=== PATIENT | female | born 1960 | race Caucasian/White ===

== ENCOUNTER 2019-05-15 20:57 | Inpatient (IN) | payer MEDICAID, OTHER ==
[~2019-05-15] VITALS: Ht 175.3 cm; Wt 120.0 kg
[2019-05-15 21:48] LABS: Basophils # (auto) 0 uL; Eosinophils # (auto) 0.1 uL; Hematocrit 18.8 % (36.0-46.0); Monocytes # (auto) 1.7 uL; Red Blood Cells 2.56 10^6/uL (4.0-5.20)
[2019-05-15 21:50] LABS: Basophils % (auto) 0.2 % (0.0-2.0); Lymphocytes % (auto) 9.7 % (10.0-50.0); Mean Corpuscular Hgb Conc. 31.3 g/dL (32.0-36.0); Mean Corpuscular Volume 73.4 fL (80.0-100.0); Monocytes % (auto) 15.8 % (0.0-12.0); Neutrophils # (auto) 7.7 uL; Neutrophils % (auto) 73.3 % (37.0-80.0); Platelet Count (auto) 161 10^3/uL (140-450); White Blood Cell 10.5 10^3/uL (4.4-10.8)
[2019-05-15 22:01] LABS: Nucleated Red Blood Cells % 3.3 %; Red Cell Distribution Width 21.6 % (11.8-14.3)
[2019-05-15 22:02] LABS: INR 2.38 (0.9-1.15); Partial Thromboplastin Time 54.7 sec (23.64-32.05)
[2019-05-15 22:03] LABS: Hemoglobin 5.9 g/dL (12.2-16.2)
[2019-05-15 22:06] LABS: Albumin 2.4 g/dL (3.4-5.0); BUN/Creatinine Ratio 22.1; Calcium 7.8 mg/dL (8.5-10.1); Magnesium 2.5 mg/dL (1.6-2.6); Potassium 5.3 mmol/L (3.5-5.1)
[2019-05-15 22:11] LABS: Total Protein 6.1 g/dL (6.4-8.2)
[2019-05-15] MEDS ORDERED: SODIUM CHL 3% 500 ML IV ONE (22:30)
[2019-05-16] VITALS (35 sets, daily range): BP systolic 84–109; BP diastolic 32–77
[2019-05-16 01:59] LABS: Albumin 2.2 g/dL (3.4-5.0); BUN/Creatinine Ratio 23.5; Calcium 7.7 mg/dL (8.5-10.1); Potassium 5.4 mmol/L (3.5-5.1)
[2019-05-16 02:02] LABS: Bilirubin, Total 8.3 mg/dL (0.2-1.0); Total Protein 5.4 g/dL (6.4-8.2)
[2019-05-16] MEDS ORDERED: ACETAMINOPHEN 500 MG TAB PO PRN (03:15)
[2019-05-16] MEDS ORDERED: DOCUSATE SOD 100 MG CAP PO PRN (03:15)
[2019-05-16] MEDS ORDERED: TEMAZEPAM 15 MG CAP PO PRN (03:15)
[2019-05-16] MEDS ORDERED: ALBUMIN 25% 100 ML IV ONE (03:15)
[2019-05-16] MEDS ORDERED: ONDANSETRON HCL 4 MG/2 ML VIAL IV PRN (03:15)
[2019-05-16 03:32] LABS: Urine Amorphous Crystal FEW /hpf (None Seen); Urine Bacteria FEW /hpf (None Seen); Urine Blood Negative /uL (Negative); Urine Specific Gravity 1.013 (1.001-1.035); Urine WBC 2 /hpf (0 - 5)
--- NOTE | 2019-05-16 04:15 | NUR ---
ADMITTED WITH DIZZINESS AND WEAKNESS FOR 2 DAYS. JAUNDICE, ICTERIC. NA 110, K 5.4,HG 5.9, TROPONIN +, BNP 309.81, PTT HIGH. PATIENT IS GROGGY. ZIGGY. HERANNDEZ. FOLLOWS COMMANDS. ALL EXTR WARM. ALL PULSES PALPABLE. OBESE. LUNGS CLEAR. ABDOMEN ROUND AND SOFT. 3+ PITTING EDEMA IN LEGS. RADHA JON HERE. ORDERS RECEIVED FOR LASIX IF THE BLOOD PRESSURE GOES UP, PROTONIX, ALBUMIN, NPO, GIVE ONE MORE UPC IF THE HG IS LESS THAN 7, NA Q [address] OF THE ABDOMEN. EXPLAIN THINGS TO THE PATIENT AND SHE UNDERSTANDS. RADHA JON REVIEWED THE IMAGING STUDIES OF THE CHEST AND HEAD.
[2019-05-16] MEDS ORDERED: FUROSEMIDE 20 MG/2 ML VIAL IV ONE (05:15)
[2019-05-16 07:14] LABS: Basophils # (auto) 0.1 uL; Basophils % (auto) 0.7 % (0.0-2.0)
[2019-05-16 07:18] LABS: Eosinophils # (auto) 0.1 uL; Eosinophils % (auto) 1.5 % (0.0-7.0); Hematocrit 21.2 % (36.0-46.0); Hemoglobin 7.1 g/dL (12.2-16.2); Lymphocytes # (auto) 1.1 uL; Lymphocytes % (auto) 10.7 % (10.0-50.0); Mean Corpuscular Hemoglobin 25.7 pg (28.0-32.0); Mean Corpuscular Hgb Conc. 33.4 g/dL (32.0-36.0); Mean Corpuscular Volume 76.9 fL (80.0-100.0); Monocytes # (auto) 1.7 uL; Monocytes % (auto) 17.7 % (0.0-12.0); Neutrophils # (auto) 6.8 uL; Neutrophils % (auto) 69.4 % (37.0-80.0); Platelet Count (auto) 131 10^3/uL (140-450); Red Blood Cells 2.76 10^6/uL (4.0-5.20); White Blood Cell 9.8 10^3/uL (4.4-10.8)
[2019-05-16 07:31] LABS: Albumin 2.7 g/dL (3.4-5.0); BUN/Creatinine Ratio 22.2; Calcium 7.6 mg/dL (8.5-10.1); Potassium 5.4 mmol/L (3.5-5.1)
[2019-05-16 07:36] LABS: Bilirubin, Total 11.8 mg/dL (0.2-1.0); Total Protein 5.9 g/dL (6.4-8.2)
--- NOTE | 2019-05-16 08:00 | NUR ---
Opening Shift Note Assumed care of patient, awake and alert. Patient A&Ox4. Patient on the monitor, on room air, saturation at 96%. Burgess to gravity. Patient NPO at this time. IV right hand 20G running 3% sodium at 50ml/hr and left hand 20G saline locked. Both IV's patent, clean, dry, and intact. Patient skin and sclarea of eyes jaundice. Skin intact. Bed locked and in the lowest position, side rails up x2, call light with in reach. No S/S of distress/SOB or pain. Instructed on POC and to call for assist PRN. Will continue to monitor.
[2019-05-16] MEDS ORDERED: FUROSEMIDE 20 MG/2 ML VIAL IV SCH (10:00)
[2019-05-16] MEDS ORDERED: PANTOPRAZOLE 40 MG/10 ML VIAL INJ IV SCH ×2 (10:00)
--- NOTE | 2019-05-16 10:00 | NUR ---
Medication dosages, usages, and side effects explained to patient. Patient verbalized understanding. Will continue to monitor.
[2019-05-16 11:11] LABS: Nucleated Red Blood Cells % 6.7 %; Red Cell Distribution Width 22.6 % (11.8-14.3)
[2019-05-16 11:57] LABS: Hematocrit 21.2 % (36.0-46.0)
--- NOTE | 2019-05-16 12:30 | NUR ---
Dr. Arreola at bedside.
[2019-05-16] MEDS ORDERED: IOHEXOL 300 MG/ML 100ML BOTTLE IJ ONE (12:53)
--- NOTE | 2019-05-16 14:30 | NUR ---
Dr. Pabon at bedside.
--- NOTE | 2019-05-16 15:45 | NUR ---
Spoke with Dr. Vogt over the phone. New orders for Stat sodium levels Q4 hours with results called to nephrology. Urine sodium, creatinine, protein, osmolarity, and UA. Start Levophed Quad strength to keep systolic above 90. Give Lasix 80mg IV push after Levo is started.
[2019-05-16 15:46] LABS: Hematocrit 22.6 % (36.0-46.0); Hemoglobin 7.5 g/dL (12.2-16.2)
[2019-05-16 16:00] LABS: BUN/Creatinine Ratio 26.2; Calcium 7.9 mg/dL (8.5-10.1); Potassium 5.4 mmol/L (3.5-5.1)
[2019-05-16] MEDS ORDERED: FUROSEMIDE 100 MG/10ML VIAL IV ONE (16:00)
--- NOTE | 2019-05-16 16:00 | NUR ---
Spoke with Dr. Arreola about new orders from Dr. Vogt. upgrade to ICU.
[2019-05-16 16:01] LABS: % Iron Saturation 67.4 % (15-50)
[2019-05-16 16:07] LABS: Alcohol, Urine < 3.0 mg/dL (0-5); Amphetamine Screen, Urine NEGATIVE (NEGATIVE); Barbiturate Scree,Urine NEGATIVE (NEGATIVE); Benzodiazephine Screen, Urine POSITIVE (NEGATIVE); Cannabinoid Screen, Urine NEGATIVE (NEGATIVE); Cocaine Screen, Urine NEGATIVE (NEGATIVE); Opiate Scree,Urine NEGATIVE (NEGATIVE); Phencyclidine Screen, Urine NEGATIVE (NEGATIVE)
--- NOTE | 2019-05-16 16:20 | NUR ---
Dr. Vogt at bedside.
[2019-05-16 16:40] LABS: Urine Bacteria NONE SEEN /hpf (None Seen); Urine Blood 3+ /uL (Negative); Urine Specific Gravity 1.031 (1.001-1.035); Urine WBC 83 /hpf (0 - 5)
[2019-05-16 16:49] LABS: Protein, Urine 68.5 mg/dL (0.0-11.9)
--- NOTE | 2019-05-16 17:10 | NUR ---
Patient resting at this time. Blood pressure 96/50. Levo held until systolic blood pressure drops below 90. See vital sign intervention. Will continue to monitor.
[2019-05-16] MEDS: ALBUMIN 25% 100 ML IV SCH (18:25)
--- NOTE | 2019-05-16 18:30 | NUR ---
End of shift note: Patient resting at this time. Patient A&Ox4. Patient on the monitor, on room air, saturation at 99%. Burgess to gravity. Patient on CLD, waiting for diet tray. Patient on 1L fluid restrictions. IV right hand 20G saline locked and left hand 20G running albumin 25% at 100ml/hr. Both IV's patent, clean, dry, and intact. Patient skin and sclarea of eyes jaundice. Skin intact. Bed locked and in the lowest position, side rails up x2, call light with in reach. No S/S of distress/SOB or pain. Will continue to monitor. Report to be given to retail shift leader RN.
[2019-05-16] MEDS: BUMETANIDE 1mg/4ml VIAL (0.25mg/ml) IV SCH (19:01)
--- NOTE | 2019-05-16 20:00 | NUR ---
Opening Shift Note Assumed care of patient, awake and alert and oriented x3, patient's responds to questions very delayed. Noted to be edematous and jaundiced throughout with coarse/diminished lung sounds throughout. Patient follows commands, turned to side with moderate assistance to assess for skin integrity and for relief of pressure points with pillows. IV to right and left hand flushing and patent. BP in 90's systolic, temperature rechecked at this time : 97.3f orally.No S/S of distress/SOB or pain, on RA. Instructed on POC and to call for assist PRN, continue to monitor closely.
[2019-05-16] MEDS ORDERED: PANTOPRAZOLE 40 MG TAB PO SCH (22:00)
[2019-05-16] MEDS: OCTREOTIDE ACETATE 100 MCG/ML VL SUBCUT SCH (22:06)
--- NOTE | 2019-05-16 23:57 | NUR ---
LEFT MESSAGE WITH 'S EXCHANGE AND SODIUM LEVEL FOR THIS EVENING
[2019-05-17] VITALS (113 sets, daily range): BP systolic 80–118; BP diastolic 25–67
[2019-05-17] MEDS: NOREPINEPHRINE BITARTRATE 32 MG in D5W 5% 218 ML IV SCH ×2 (00:13→15:51)
--- NOTE | 2019-05-17 00:43 | NUR ---
REPORT GIVEN TO HELEN PARKS IN ICU
--- NOTE | 2019-05-17 01:15 | NUR ---
ANGELA pt transferred to ICU DEVONTE THOMAS transferred to ICU via rniwot on engine monitor by insulation cupola charger and CCT. All patient medications and personal belongings transferred with patient to receiving floor. Patient care transferred to Alix PARKS.No s/s of distress or SOB upon departure. Last BP 93/55.
--- NOTE | 2019-05-17 01:25 | NUR ---
BROUGHT TO ROOM 111 ICU AT 0125. NSR WITHOUT ECTOPY. SBP 101-105. LEVOPHED DRIP. 2 PERIPHERAL IVS, ONE 20 IN THE LEFT HAND AND ONE 20 IN THE RIGHT HAND. LEVOPHED GOING THROUGH THE LEFT HAND. MUCH MORE SOMNULENT THAN WHEN SHE WAS ORIGINALLY ADMITTED. KNEW NAME. THEN IMMEDIATELY FELL ASLEEP. SNORING. LUNGS CLEAR. PUPILS 4 AND BRISK. ALL PULSES PALPABLE. NO EDEMA IN ARMS. 3+ PITTING EDEMA IN LEGS. 0200 NA LEVEL AND AMMONIA LEVEL DUE TO BE DRAWN. NOTED DRIED ABRASIONS ON BOTH ELBOWS. OTHERWISE SMALL NICKS SCATTERED OVER BODY. MANCINI IN PLACE, ROXANNE FLUID IN BAG.
--- NOTE | 2019-05-17 01:53 | NUR ---
CALLED LAB TO REORIENT THEM TO HER LOCATION. ACCUCHRUPERTO 115.
--- NOTE | 2019-05-17 02:00 | NUR ---
AM LABS BEING DRAWN
[2019-05-17 02:25] LABS: Basophils # (auto) 0 uL; Eosinophils # (auto) 0.3 uL; Monocytes # (auto) 1.7 uL
[2019-05-17 02:27] LABS: Basophils % (auto) 0.4 % (0.0-2.0); Lymphocytes # (auto) 1.1 uL; Lymphocytes % (auto) 8.4 % (10.0-50.0); Mean Corpuscular Hemoglobin 25.2 pg (28.0-32.0); Mean Corpuscular Hgb Conc. 32.5 g/dL (32.0-36.0); Mean Corpuscular Volume 77.4 fL (80.0-100.0); Monocytes % (auto) 13.2 % (0.0-12.0); Platelet Count (auto) 137 10^3/uL (140-450); Red Blood Cells 2.71 10^6/uL (4.0-5.20); White Blood Cell 13.2 10^3/uL (4.4-10.8)
[2019-05-17 02:29] LABS: Nucleated Red Blood Cells % 3.9 %; Red Cell Distribution Width 22.1 % (11.8-14.3)
[2019-05-17 02:33] LABS: Hemoglobin 6.8 g/dL (12.2-16.2)
--- NOTE | 2019-05-17 02:52 | NUR ---
ONE UNIT OF PACKED CELLS ORDERED PER RADHA JON
[2019-05-17 02:55] LABS: Albumin 2.8 g/dL (3.4-5.0); Potassium 5.1 mmol/L (3.5-5.1)
[2019-05-17 02:58] LABS: Bilirubin, Total 12.5 mg/dL (0.2-1.0); Phosphorus 4.1 mg/dL (2.5-4.90); Total Protein 5.7 g/dL (6.4-8.2)
--- NOTE | 2019-05-17 03:19 | NUR ---
NA AND AMMONIA LEVEL CALLED TO DR HEART'S EXCHANGE.
[2019-05-17 03:31] LABS: BUN/Creatinine Ratio 25.3
--- NOTE | 2019-05-17 04:02 | NUR ---
UPC STARTED. STILL VERY GROGGY. WAKES UP TO NAME. SLEEPS CONTINUOUSLY. ZIGGY. PRINT PRODUCTION MANAGER TO COMMAND, WEAKLY. LUNGS CLEAR. ROOM AIR. BICARB LOW ON ABG. ABDOMEN IS VERY ROUND AND SOFT. PITTING EDEMA IN BOTH LEGS PERSISTS. ALL PULSES PALPABLE. HAS 2 BLANKETS ON. TEMP IS LOWER.
--- NOTE | 2019-05-17 05:30 | NUR ---
DR DELCID CALLED AND IS HAPPY WITH WHERE HER SODIUM IS FOR NOW. NO NEW ORDERS RECEIVED.
[2019-05-17] MEDS: OCTREOTIDE ACETATE 100 MCG/ML VL SUBCUT SCH ×3 (05:38→21:23)
[2019-05-17] MEDS: BUMETANIDE 1mg/4ml VIAL (0.25mg/ml) IV SCH ×2 (05:38→21:22)
[2019-05-17] MEDS: ALBUMIN 25% 100 ML IV SCH ×2 (05:44→18:23)
--- NOTE | 2019-05-17 06:36 | NUR ---
UPC FINISHED AT 0625. ALBUMIN DONE.
--- NOTE | 2019-05-17 07:45 | NUR ---
Neuro status Patient alert and oriented x1, verbalizes name only with garbled speech. Able to follow simple command but is delayed. Will continue to monitor closely. See interventions/ notes. Call light at reach, bed in lowest position. Aspiration precautions in place.
--- NOTE | 2019-05-17 08:00 | NUR ---
Warming Measures applied. Patient currently has temp of 97.4 , warming measures in place.
--- NOTE | 2019-05-17 08:30 | NUR ---
NPO Patient to remain npo as she is too lethargic and is at high risk for aspiration. Po meds to be changed to alternative route. Awaiting md.
[2019-05-17 09:08] LABS: Hepatitis B Surface Antibody Negative
[2019-05-17 09:45] LABS: Hepatitis A Total Antibody Negative
--- NOTE | 2019-05-17 09:46 | NUR ---
DR. EDWARDS AT BEDSIDE MD UPDATED ON PATIENTS STATUS. MD IS AWARE PATIENT IS LETHARGIC AND UNABLE TO SWALLOW MEDICATIONS AT THIS TIME. NEW ORDER FOR NG TO BE PLACE. SEE MD ORDERS. MEDICATION RECORDS REQUESTED SHOWN TO MD. REQUEST FROM DR. ROD'S OFFICE PENDING. Addendum: 05/17/19 at 1334 by Delmis Doss RN Md aware of scant/small bright red blood noted from rectum during nell care this a.m.
--- NOTE | 2019-05-17 09:57 | NUR ---
Nasogastric tube insertion Patient educated on need for NG tube. All questions addressed. NGT inserted per MD order. Placement verified by aspiration of stomach contents, auscultation and chest xray ordered.
[2019-05-17] MEDS ORDERED: LACTULOSE 20Gm/30ML SOLN NG SCH (10:00)
--- NOTE | 2019-05-17 10:00 | NUR ---
Family updated on pt status Family of MINOR DEVONTE GOMEZ updated on patient's status and condition. All questions and concerns addressed. Pillo verbalized understanding.
[2019-05-17 10:15] LABS: Hepatitis C Antibody Negative (Negative)
[2019-05-17 10:16] LABS: Hepatitis B Core Total AB Negative; Hepatitis B Surface Antigen Negative (Negative)
[2019-05-17 10:24] LABS: INR 2.48 (0.9-1.15)
--- NOTE | 2019-05-17 10:33 | NUR ---
at bedside Dr. Rodrigues updated on patients status. See new orders.
--- NOTE | 2019-05-17 11:09 | NUR ---
Toxicologist paged re: sodium level per communication order. Awaiting callback.
[2019-05-17] MEDS ORDERED: PHYTONADIONE (VIT K)10 MG/ML 1ML VIAL SUBCUT ONE ×2 (11:15→20:15)
[2019-05-17] MEDS: OMEPRAZOLE 20MG/10ML ORAL SUSP NG SCH ×2 (11:50→21:22)
--- NOTE | 2019-05-17 12:26 | NUR ---
Nutrition Consult/Assessment Notes please see attached link for complete assessment Est. Needs ABW [id number] kcal (20-23kcal/kgBW), 51-68 gms pro (0.6-0.8 gms/kgBW r/t elev ammonia cirrhosis). Will continue to monitor pertinent labs and reassess nutrient need prn. Addendum: 05/17/19 at [address] Amended: Links added.
--- NOTE | 2019-05-17 13:22 | NUR ---
RESP. STATUS DR. SINA COMBS TO NOTIFY PATIENT IS CURRENTLY AROUSUABLE ONLY TO PAINFUL STIMULI VIA STERNAL CHEST RUB. RESP. STATUS AT THIS TIME IS PATENT, REMAINS ON ROOM AIR 95% RR 2-27. NEW ORDER IN PLACE. AIRWAY TO BE MONITORED CLOSELY.
[2019-05-17] MEDS ORDERED: LACTULOSE 20Gm/30ML SOLN PO PRN ×2 (14:00)
[2019-05-17] MEDS ORDERED: ETOMIDATE (2MG/ML) 20ML VIAL IV ONE ×2 (14:46→16:00)
[2019-05-17] MEDS ORDERED: SUCCINYLCHOLINE CHLORIDE 20 MG/ML 10ML VIAL IV ONE ×2 (14:47→16:00)
--- NOTE | 2019-05-17 15:12 | NUR ---
PICC line placement Patient/Patient significant other educated on need for PICC line placement. All risks and benefits explained and all questions and concerns addressed prior to procedure. Noted past medical history and allergies with no contraindications. INR and Plt counts within acceptable range. 5 fr PICC line inserted via right basilic vein using [employer] US and Tip Location System. Sterile technique with maximum barrier precautions utilized. Blood return obtained from each of 3 lumens and each flushed easily with NS using proper technique. PICC secured with Stat-lock; biodisc and occlusive dressing applied. Stat portable chest x-ray obtained for PICC tip placement. *Baseline Arm Circumference 32cm. Internal length 40cm. External length 0cm. PICC lot # [id number]. Note: Placed easily x1 attempt. No bleeding post PICC line insertion (INR 2.48)
[2019-05-17] MEDS ORDERED: LIDOCAINE 1% (LOCAL ANESTH.) PF 5ml SDV ID ONE (15:15)
--- NOTE | 2019-05-17 15:29 | NUR ---
MD UPDATED PATIENT IS MORE LETHARGIC, NOT RESPONSIVE TO PAINFUL STIMULI COMPARED TO EARLIER. DR. SINA GARCIA MD SPOKE TO AND AGREES TO ALL TREATMENT INCLUDING INTUBATION. DR. SALGADO AWARE OF NEED FOR INTUBATION FOR AIRWAY PROTECTION AT THIS TIME. Mack GARCIA.
[2019-05-17 16:03] LABS: Hematocrit 20.8 % (36.0-46.0); Mean Corpuscular Hemoglobin 25.9 pg (28.0-32.0); Mean Corpuscular Hgb Conc. 32.7 g/dL (32.0-36.0); Mean Corpuscular Volume 79.2 fL (80.0-100.0); Red Blood Cells 2.62 10^6/uL (4.0-5.20); White Blood Cell 14.7 10^3/uL (4.4-10.8)
[2019-05-17] MEDS ORDERED: PROPOFOL 100 ML IV ONE (16:11)
--- NOTE | 2019-05-17 16:16 | NUR ---
ICU pt. intubated Dr. Gallo at bedside to intubate patient for airway protection. Respiratory Therapist notified and at bedside. via phone instructed on need for intubation and possible sedation while on ventilator. Patient intubated by Dr. Gallo with 7.0 ETT, 23 at the lip after ett adjustment via CXR., Medications given, see emar.
[2019-05-17 16:20] LABS: Red Cell Distribution Width 22.1 % (11.8-14.3)
[2019-05-17 16:23] LABS: Hemoglobin 6.8 g/dL (12.2-16.2); Platelet Count (auto) 20 10^3/uL (140-450)
[2019-05-17 16:24] LABS: Band Neutrophils % (manual) 0; Basophils % (manual) 0 (0.0-2.0); Blast Cells 0; Myelocytes % 0; Promyelocytes % 0; Reactive Lymphocytes 0
[2019-05-17] MEDS: PROPOFOL 100 ML IV SCH (16:25)
--- NOTE | 2019-05-17 17:10 | NUR ---
OK to use PICC line Xray completed. OK to use PICC line.
--- NOTE | 2019-05-17 17:27 | NUR ---
DR. ANDINO CALLED BACK NOTIFIED OF CURRENT CRITICAL LAB VALUES ALONG WITH ABG RESULTS. SEDATION TO BE INCREASED AND BLOOD GAS TO BE REASSESSED WITHIN 2 HRS. NOTIFIED OF BLEEDING NOTED FROM NG. SEE NEW ORDERS.
--- NOTE | 2019-05-17 17:30 | NUR ---
DR. EDWARDS PAGED TO NOTIFY OF CURRENT PLT COUNT AND NG OUTPUT. AWAITING CALLBACK.
[2019-05-17 18:07] LABS: Eosinophils % (manual) 1 (0-7); Lymphocytes % (manual) 10 (10.0-50.0); Metamyelocytes % 1; Monocytes % (manual) 2 (0-12)
[2019-05-17] MEDS: PIPERACILLIN-TAZOB 3.375GM 100 ML IV SCH ×2 (18:23→23:20)
--- NOTE | 2019-05-17 19:00 | NUR ---
MD PAGED PER MD COMMUNICATION ORDERS MD CALLED TO NOTIFY OF NA LEVEL. AWAITING CALLBACK.
--- NOTE | 2019-05-17 19:09 | NUR ---
DR. DELCID CALLED BACK. NOTIFIED OF CURRENT NA LEVEL. VERBALIZED UNDERSTANDING. NO NEW ORDERS.
[2019-05-17 19:24] LABS: INR > 8.0 (0.9-1.15)
--- NOTE | 2019-05-17 19:26 | NUR ---
Critical lab value Hospitalist paged. See new orders. Noc shift aware.
[2019-05-17] MEDS ORDERED: phytonadione 10 MG in SODIUM CHL 0.9% 50 ML IV ONE (19:30)
--- NOTE | 2019-05-17 19:30 | NUR ---
Opening notes Assumed care, on AC mode vent with PICC line to the right upper arm infusing propofol and levophed, see spreadsheet for titration. PIV's patent and intact, clear lung sounds noted, NGT intact with minimal amount of bloody output, adam catheter draining to a light edgardo urine with sediments, generalized edema still noted, with SCD's to bilateral legs, still with jaundice. Bed in lowest position with side rails up, bed alarm on. Will continue care.
--- NOTE | 2019-05-17 19:51 | NUR ---
BLOOD TRANSFUSION 1 UNIT OF PRBC 300ML STARTED AFTER PROPER CROSS MATCHING AND TYPING, UNIT VERIFIED WITH JOSE PARKS. VS MONITORED PER PROTOCOL. WILL MONITOR FOR TRANSFUSION REACTION.
[2019-05-17] MEDS: SODIUM CHLOR 0.9% PF (SALINE LOCK) 10ML VIAL/SYR IV SCH (21:22)
--- NOTE | 2019-05-17 22:34 | NUR ---
PAGED DR. HEART AND SPOKE WITH ESTUARDO, ANSWERING PROTECTIVE SERVICES OFFICER TO RELAY CRITICAL SODIUM LEVEL, 118. AWAITING CALL BACK.
--- NOTE | 2019-05-17 22:35 | NUR ---
BLOOD TRANSFUSION DONE, VS TAKEN AND RECORDED. NO TRANSFUSION REACTION NOTED.
--- NOTE | 2019-05-17 22:40 | NUR ---
returned call Dr. Ocasio returned call, updated on patient status and reason for call regarding Na level 118, no new orders received. Continue care.
--- NOTE | 2019-05-17 22:55 | NUR ---
1st unit of FFP started, unit verified with Sapna PARKS. VS taken per protocol
[2019-05-18] VITALS (109 sets, daily range): BP systolic 69–209; BP diastolic 26–119
--- NOTE | 2019-05-18 00:10 | NUR ---
Wound care Serosanguineous drainage noted in the right elbow, cleansed wound with NS and covered with optifoam, wound photo taken for reference and placed a wound consult.
--- NOTE | 2019-05-18 01:37 | NUR ---
1st unit of FFP consumed and terminated, VS taken and recorded. No transfusion reaction noted. Will continue to monitor
--- NOTE | 2019-05-18 01:37 | NUR ---
OFE IRRIGATOR HEAD CALLED BACK, UPDATED ON PT'S STATUS RE: LABS, BLOOD TRANSFUSIONS GIVEN, BP NOT DETECTED, HR 92, RR 33. RT AT BEDSIDE, PROPOFOL OFF. NEW ORDERS GIVEN TO GIVE ALBUMIN 250ML, 5%, STAT H&H AND COAG. WILL CARRY OUT ORDERS
--- NOTE | 2019-05-18 01:45 | NUR ---
Ramin Delvalle, LORRAINE for more sedation order, tachypnea and decreased BP still noted, pt is now on propofol and levophed.
--- NOTE | 2019-05-18 01:46 | NUR ---
BP 69/26, HR 85, RR 34, SPO2 100%, PT BITING ET TUBE AND DECORTICATION OF UPPER EXTREMITIES NOTED, RT AND SARIKA RN AT BEDSIDE TRYING TO PUT A BITE BLOCK BUT UNSUCCESSFUL. LEVOPHED INCREASED TO 30 MCG/MIN, DIPRIVAN ! 20 MCG/KG/MIN. AWAITING FOR THE HOSPITALIST TO CALL BACK.
--- NOTE | 2019-05-18 02:18 | NUR ---
REASSESSMENT BP 110/48, HR 85, R 35, SPO2 100%.
[2019-05-18] MEDS ORDERED: ALBUMIN 5% 250 ML IV ONE ×2 (02:36→02:45)
[2019-05-18] MEDS ORDERED: fentaNYL Drip 2500mCg/250mlNS 250 ML IV ONE (02:59)
--- NOTE | 2019-05-18 03:05 | NUR ---
REASSESSMENT AFTER GIVING ALBUMIN ORDERED, BP 123/77, HR 96, SPO2 99%. FENTANYL STARTED @ 50 MCG/HR
[2019-05-18 03:07] LABS: Hematocrit 23.2 % (36.0-46.0); Hemoglobin 7.8 g/dL (12.2-16.2); Mean Corpuscular Hemoglobin 27.6 pg (28.0-32.0); Mean Corpuscular Hgb Conc. 33.7 g/dL (32.0-36.0); Mean Corpuscular Volume 81.9 fL (80.0-100.0); Platelet Count (auto) 115 10^3/uL (140-450); Red Blood Cells 2.83 10^6/uL (4.0-5.20)
[2019-05-18 03:09] LABS: Red Cell Distribution Width 21.5 % (11.8-14.3)
[2019-05-18 03:12] LABS: Basophils % (manual) 0 (0.0-2.0); Blast Cells 0; Myelocytes % 0; Promyelocytes % 0; Reactive Lymphocytes 0
[2019-05-18] MEDS: fentaNYL Drip 2500mCg/250mlNS 250 ML IV SCH (03:18)
[2019-05-18 03:23] LABS: INR 2.38 (0.9-1.15); Partial Thromboplastin Time 56.7 sec (23.64-32.05)
[2019-05-18 03:27] LABS: Albumin 3.4 g/dL (3.4-5.0); BUN/Creatinine Ratio 21.9; Magnesium 2.3 mg/dL (1.6-2.6); Potassium 4.9 mmol/L (3.5-5.1)
[2019-05-18 03:30] LABS: Bilirubin, Total 12.3 mg/dL (0.2-1.0); Total Protein 5.8 g/dL (6.4-8.2)
--- NOTE | 2019-05-18 03:45 | NUR ---
Elimination Had large amount of liquid, blackish stools, external hemorrhoids also noted. Cleaned pt and complete linens and gown changed. Unable to reposition due to very unstable VS.
[2019-05-18] MEDS: PROPOFOL 100 ML IV SCH (03:53)
[2019-05-18] MEDS ORDERED: VASOPRESSIN 50 UNITS in D5W 5% 247.5 ML IV SCH (05:45)
[2019-05-18] MEDS ORDERED: VASOPRESSIN 20 UNIT/ML ONE (05:51)
[2019-05-18] MEDS: ALBUMIN 25% 100 ML IV SCH (05:52)
[2019-05-18] MEDS: PIPERACILLIN-TAZOB 3.375GM 100 ML IV SCH ×3 (05:53→18:09)
[2019-05-18] MEDS: OCTREOTIDE ACETATE 100 MCG/ML VL SUBCUT SCH ×3 (05:53→22:01)
[2019-05-18] MEDS: BUMETANIDE 1mg/4ml VIAL (0.25mg/ml) IV SCH (05:53)
--- NOTE | 2019-05-18 06:54 | NUR ---
Pagedonavon Delvalle for orders, maxed out on levophed and vasopressin, BP 78/40, HR 76. Awaiting call back.
--- NOTE | 2019-05-18 06:56 | NUR ---
Mook PETERS called back, updated on pt's status and gave order to start neosynephrine. Will carry out order.
[2019-05-18] MEDS ORDERED: PHENYLEPHRINE INJ 20 MG in SODIUM CHL 0.9% 250 ML IV SCH (06:57)
[2019-05-18] MEDS ORDERED: PHENYLEPHRINE IV 250 ML IV ONE ×2 (06:57→11:25)
--- NOTE | 2019-05-18 07:00 | NUR ---
Phenylephrine started @ 40 mcg/min, BP 78/40, HR 77.
--- NOTE | 2019-05-18 07:21 | NUR ---
Closing notes Resting on bed, still on vent and sedation with fentanyl, off propofol. ON levophed, vasopressin and neosynephrine drips, see spreadsheet for titration. BP 94/51, HR 79, SPO2 100, RR 25. Will give the report to day shift RN,
--- NOTE | 2019-05-18 07:30 | NUR ---
REPORT REPORT RECEIVED FROM NIGHT RNSAVAGE. PT RESTING IN BED WITH EYES CLOSED, OON THE VENTILATOR , SEDATED ON LOW DOSE FENTANYL AND ON 3 PRESSORS. CONTINUE TO MONITOR.
--- NOTE | 2019-05-18 07:55 | NUR ---
PT TEACHING PT UNABLE TO BENEFIT FROM PT TEACHING AT THIS TIME DUE TO PT CONDITION. Addendum: 05/18/19 at 1300 by Xiomy Berg RN Amended: Links added.
[2019-05-18 08:19] LABS: Hematocrit 22.8 % (36.0-46.0); Hemoglobin 7.4 g/dL (12.2-16.2)
[2019-05-18 08:26] LABS: Band Neutrophils % (manual) 6; Eosinophils % (manual) 8 (0-7); Lymphocytes % (manual) 8 (10.0-50.0); Metamyelocytes % 1; Monocytes % (manual) 5 (0-12)
[2019-05-18 08:37] LABS: White Blood Cell 2.6 10^3/uL (4.4-10.8)
[2019-05-18] MEDS: SODIUM CHLOR 0.9% PF (SALINE LOCK) 10ML VIAL/SYR IV SCH ×2 (10:00→22:00)
[2019-05-18] MEDS: OMEPRAZOLE 20MG/10ML ORAL SUSP NG SCH ×2 (10:26→22:00)
[2019-05-18] MEDS ORDERED: SODIUM BICARBONATE 50ML VIAL 150 ML in SODIUM CHLORIDE 0.9% 1,000 ML IV SCH (11:00)
[2019-05-18] MEDS: PHENYLEPHRINE INJ 80 MG in SODIUM CHL 0.9% 250 ML IV SCH (11:06)
[2019-05-18] MEDS ORDERED: PHENYLEPHRINE HCL 10 MG/ML VL ONE (11:25)
--- NOTE | 2019-05-18 12:10 | NUR ---
MD/ABNORMAL LABS PAGED AND SPOKE WITH DR MCBRIDE TO NOTIFY OF H/H 6.3/19.8 . SHE WANTS ME TO NOTIFY DR EDWARDS OF THESE RESULTS. PAGING DR EDWARDS.
--- NOTE | 2019-05-18 12:17 | NUR ---
NOTIFIED DR EDWARDS OF LOW H/H 6.3/19.8. HE STATED THAT THE ABNORMAL PT/PTT/INR NEED TO BE CORRECTED FIRST. WILL NOTIFY DR MCBRIDE.
--- NOTE | 2019-05-18 12:19 | NUR ---
CONTACTED BY LAB THAT UNABLE TO OBTAIN PTPTT RESULT AND SO WILL SEND NEPHROLOGIST TO DO A PERIPHERAL STICK AND RERUN CBC AND PTPTT.
--- NOTE | 2019-05-18 12:41 | NUR ---
CALLED AND SPOKE WITH PHARMACIST, STILL WAITING FOR SODIUM BICARB DRIP.
[2019-05-18] MEDS: LACTULOSE 20Gm/30ML SOLN PO SCH ×3 (13:14→22:02)
[2019-05-18 13:25] LABS: Hemoglobin 7.4 g/dL (12.2-16.2); Platelet Count (auto) 80 10^3/uL (140-450)
[2019-05-18 13:27] LABS: Hematocrit 22.5 % (36.0-46.0); Mean Corpuscular Hemoglobin 27.2 pg (28.0-32.0); Mean Corpuscular Hgb Conc. 32.9 g/dL (32.0-36.0); Mean Corpuscular Volume 82.6 fL (80.0-100.0); Red Blood Cells 2.73 10^6/uL (4.0-5.20)
[2019-05-18 13:28] LABS: INR 2.79 (0.9-1.15); Partial Thromboplastin Time 65.5 sec (23.64-32.05)
[2019-05-18 13:30] LABS: Red Cell Distribution Width 21.8 % (11.8-14.3)
[2019-05-18 13:31] LABS: Basophils % (manual) 0 (0.0-2.0); Blast Cells 0; Promyelocytes % 0; Reactive Lymphocytes 0
--- NOTE | 2019-05-18 13:40 | NUR ---
PAGED AND SPOKE WITH DR MCBRIDE REGARDING LAB RESULTS FROM PERIPHERAL DRAW H/H 7.4/22.5 PTT/PT/INR 65.5/28.2/[address] MCBRIDE, ORDERS FOR DAILY VITAMIN K AND GIVE ONE UNIT OF FFP CALLED BLOOD BANK AND ONE UNIT OF FFP IS AVAILABLE.
[2019-05-18] MEDS ORDERED: PHYTONADIONE (VIT K)10 MG/ML 1ML VIAL SUBCUT ONE (13:45)
--- NOTE | 2019-05-18 14:20 | NUR ---
Pt turned and repositioned for comfort to her left side and complete linen change done. BP of 124/46 and turned neosynephrine from 120 to 110 mcg/min. Continue to monitor.
[2019-05-18] MEDS: NOREPINEPHRINE BITARTRATE 32 MG in D5W 5% 218 ML IV SCH (15:51)
--- NOTE | 2019-05-18 16:30 | NUR ---
STARTED ON ORDERED ONE UNIT OF FFP. UNIT# [id number]. CONTINUE TO MONITOR FOR POSSIBLE REACTIONS.
[2019-05-18 17:09] LABS: Hematocrit 22.9 % (36.0-46.0); Hemoglobin 7.3 g/dL (12.2-16.2); Mean Corpuscular Hemoglobin 26.9 pg (28.0-32.0); Mean Corpuscular Hgb Conc. 31.8 g/dL (32.0-36.0); Mean Corpuscular Volume 84.4 fL (80.0-100.0); Platelet Count (auto) 73 10^3/uL (140-450); Red Blood Cells 2.71 10^6/uL (4.0-5.20); White Blood Cell 13.8 10^3/uL (4.4-10.8)
[2019-05-18 17:23] LABS: INR 2.81 (0.9-1.15)
[2019-05-18 17:27] LABS: BUN/Creatinine Ratio 17.9; Calcium 7.9 mg/dL (8.5-10.1); Potassium 4.3 mmol/L (3.5-5.1)
--- NOTE | 2019-05-18 17:30 | NUR ---
WOUND CARE NOTE: IN TO SEE PATIENT PER WOUND CONSULT REQUEST. PATIENT WAS ADMITTED TO [facility] WITH DIAGNOSIS OF HYPONATREMIA. CURRENT CARLEE SCORE IS 12. SHE IS INTUBATED, SEDATED. PATIENT WAS NOTED UPON ADMIT TO HAVE WOUNDS UPON ADMIT, WOUND PHOTOS TAKEN AT THAT TIME BY BEDSIDE NURSE FOR REFERENCE. PATIENT IS NOTED TO HAVE ABRASIONS TO BOTH RIGHT AND LEFT ELBOWS. LEFT ELBOW IS INTACT, RIGHT ELBOW IS OPEN, LEFT OPEN TO AIR, MEASURING 6 X 5 CM. APPLIED THERAHONEY, OPTIFOAM GENTLE DRESSING. NEW WOUND PHOTOS TAKEN AT THIS TIME FOR REFERENCE. PATIENT HAS BEEN HAVING MULTIPLE EPISODES WITH INCONTINENT LIQUID STOOL. PATIENT WOULD BENEFIT FROM BID/PRN APPLICATIONS WITH CAVILON BARRIER FILM. RECOMMEND: FREQUENT TURN SCHEDULE Q 2 HOURS, PRN CONDITION PERMITS, WITH PRESSURE REDISTRIBUTION USING PILLOWS/WEDGES, BID/PRN APPLICATION WITH CAVILON TO PERINEUM, PERIANAL SKIN, COVERING UPPER MEDIAL SACRUM WITH OPTIFOAM GENTLE SACRAL DRESSING, Q 3 DAY/PRN DRESSING CHANGE TO RIGHT ELBOW WOUND, DIETARY CONSULT FOR LOW CARLEE, SKIN/WOUND CARE PLAN, CONTINUED MONITORING BY WOUND CARE TEAM. Addendum: 05/18/19 at 1846 by Miguelina Funk RN Amended: Links added.
--- NOTE | 2019-05-18 17:35 | NUR ---
LAB NOTIFIED BY DAVID IN LAB , THAT PT'S NA IS 119. THAT IS UP FROM 115 . CONTINUE TO MONITOR,.
--- NOTE | 2019-05-18 18:30 | NUR ---
NOTIFIED DR HEART OF NA 119 AND UOP OF 180 ML FOR THIS 12 HR SHIFT. HE WANTS BICARB DRIP DC'D, ALL IVF TO TOTAL LESS THAN 1 LITER FOR 24 HRS, AND HE WANTS NEPHROLOGY TO BE NOTIFIED BEFORE ANY CHANGES ARE MADE IN THE IVF ORDERS UNLESS PT IS IN A CODE SITUATION, ALSO ALL MEDS TO BE MIXED IN NS DUE TO LOW NA LEVEL, UNLESS CONTRAINDICATED.. CALLED AND SPOKE WITH MAYITO, PHARMACIST, AND MADE HIM AWARE OF DR HEART'S ORDERS.
[2019-05-18] MEDS ORDERED: BUMETANIDE INJECTION 25 MG in GIVE UN-DILUTED 0 ML IV SCH (18:45)
--- NOTE | 2019-05-18 19:30 | NUR ---
REPRT REPORT GIVEN TO VANESSA RNTEODORO. BEDSIDE CHECK DONE. FFP TRANSFUSION COMPLETED WITH NO ADVERSE EFFECTS NOTED.
[2019-05-18 19:57] LABS: Band Neutrophils % (manual) 14; Eosinophils % (manual) 5 (0-7); Lymphocytes % (manual) 4 (10.0-50.0); Metamyelocytes % 18; Monocytes % (manual) 3 (0-12); Myelocytes % 2
[2019-05-18 19:59] LABS: Red Cell Distribution Width 21.4 % (11.8-14.3)
[2019-05-18 20:00] LABS: Basophils % (manual) 0 (0.0-2.0); Blast Cells 0; Promyelocytes % 0; Reactive Lymphocytes 0
[2019-05-18 20:00] LABS: White Blood Cell 11.4 10^3/uL (4.4-10.8)
--- NOTE | 2019-05-18 20:00 | NUR ---
OPEN ASSUMED CARE OF FEMALE PT ORALLY INTUBATED. PT SEDATED ON FENTANYL GTT 25 MCG/HR. PT OPENS EYES DURING ORAL CARE AND TURNING. UNABLE TO FOLLOW COMMANDS. JAUNDICE APPEARING SKIN AND SCLERA OBSERVED. PT SR ON PROTECTIVE SERVICE SPECIALIST. PT RECEIVING PHENYLEPHRINE GTT QUAD CONCENTRATE, LEVOPHED GTT QUAD CONCENTRATE, AND VASOPRESSIN GTT (SEE IV SPREADSHEET FOR DOSAGES AND TITRATIONS). GTT'S INFUSING INTO R UPPER ARM PICC LINE WITH INTACT DRESSING. 20 G IV TO L. HAND S/L, AND 20 G IV TO R. HAND WITH NS AT 10 ML/HR TKO. NGT IN PLACE TO L. NARE DRAINING DARK BLACKISH GREEN BILE. PLACEMENT VERIFIED. PT WITH ANASARCA THROUGHOUT BODY. ABDOMEN FIRM DISTENDED. 4+ PITTING EDEMA TO [place] FEET AND ANKLES. SKIN TEAR/ABRASION TO R. ELBOW WITH CDI DRESSING. ABRASION TO L. POST FOREARM OPEN TO AIR NON DRAINING. MANCINI TO GRAVITY DRAINING SCANT DARK ROXANNE URINE. NO SKIN BREAKDOWN OBSERVED. NO INDICATION OF PAIN OBSERVED. BED IN LOWEST LOCKED POSITION. SIDE RAILS UP X 2. PT IN FULL VIEW OF RN STATION. WILL CONTINUE TO MONITOR.
--- NOTE | 2019-05-18 21:00 | NUR ---
GI/FLEXISEAL PT HAD LARGE DARK MAROON LIQUID STOOL. PT CLEANSED. FLEXISEAL INSERTED PLACED TO GRAVITY TO PROTECT SKIN. NO TRAUMA DURING INSERTION.
[2019-05-18 21:52] LABS: Band Neutrophils % (manual) 15; Eosinophils % (manual) 6 (0-7); Lymphocytes % (manual) 5 (10.0-50.0); Metamyelocytes % 20; Monocytes % (manual) 9 (0-12); Myelocytes % 5
[2019-05-19] VITALS (80 sets, daily range): BP systolic 0–130; BP diastolic 0–91
[2019-05-19] MEDS: PHENYLEPHRINE INJ 80 MG in SODIUM CHL 0.9% 250 ML IV SCH (00:43)
[2019-05-19] MEDS: NOREPINEPHRINE BITARTRATE 32 MG in D5W 5% 218 ML IV SCH (00:44)
[2019-05-19] MEDS: SODIUM CHL 0.9% IV SCH ×4 (00:48→18:00)
[2019-05-19] MEDS: PIPERACILLIN TAZOB IV SCH ×4 (00:48→18:00)
--- NOTE | 2019-05-19 03:00 | NUR ---
HYGIENE PT GIVEN BED BATH. HAIR DE- TANGLED AND COMBED. ORAL CARE PROVIDED. ALL CANISTERS AND SUCTION TUBING CHANGED. PT REPOSITIONED WITH PILLOWS USED TO OFFLOAD BONY PROMINENCES.
[2019-05-19] MEDS: fentaNYL Drip 2500mCg/250mlNS 250 ML IV SCH (03:11)
[2019-05-19 04:09] LABS: Hemoglobin 7.2 g/dL (12.2-16.2)
[2019-05-19 04:12] LABS: Hematocrit 22.2 % (36.0-46.0); Mean Corpuscular Hemoglobin 27.7 pg (28.0-32.0); Mean Corpuscular Hgb Conc. 32.4 g/dL (32.0-36.0); Mean Corpuscular Volume 85.3 fL (80.0-100.0); Platelet Count (auto) 77 10^3/uL (140-450); Red Blood Cells 2.61 10^6/uL (4.0-5.20)
[2019-05-19 04:15] LABS: Red Cell Distribution Width 21.2 % (11.8-14.3)
[2019-05-19 04:29] LABS: Albumin 2.9 g/dL (3.4-5.0); BUN/Creatinine Ratio 17.6; Calcium 7.9 mg/dL (8.5-10.1); Magnesium 2.6 mg/dL (1.6-2.6); Potassium 4.7 mmol/L (3.5-5.1)
[2019-05-19] MEDS: VASOPRESSIN 50 UNITS in SODIUM CHL 0.9% 247.5 ML IV SCH ×2 (04:30→16:17)
[2019-05-19 04:32] LABS: Bilirubin, Total 10.4 mg/dL (0.2-1.0); Total Protein 5.2 g/dL (6.4-8.2)
[2019-05-19 05:41] LABS: INR 2.49 (0.9-1.15)
[2019-05-19] MEDS: LACTULOSE 20Gm/30ML SOLN PO SCH ×4 (05:57→22:00)
[2019-05-19] MEDS: OCTREOTIDE ACETATE 100 MCG/ML VL SUBCUT SCH ×3 (05:58→23:48)
--- NOTE | 2019-05-19 07:30 | NUR ---
REPORT REPORT RECEIVED FROM VANESSA RNTEODORO. BEDSIDE CHECK DONE.
[2019-05-19] MEDS ORDERED: SODIUM BICARBONATE 8.4 % INJ 50ML VIAL IV ONE ×3 (08:00→21:57)
--- NOTE | 2019-05-19 08:07 | NUR ---
PAGED DR Bakari WEEKS REGARDING ABNORMAL ABG.
--- NOTE | 2019-05-19 08:07 | NUR ---
PAGED DR Bakari JACKSON TO REPORT ABNORMAL ABG RESULTS.
--- NOTE | 2019-05-19 08:10 | NUR ---
PAGENo AND SPOKE WITH DR DELCID MAKING HIM AWARE OF LOW UOP EVEN WITH PT ON BUMEX DRIP. OKAY TO ADMINISTER SODIUM BICARB ORDERED BY CHYNA ASHLEY NP.
--- NOTE | 2019-05-19 08:37 | NUR ---
NO RESPONSE FROM DR Bakari JACKSON. RE-PAGED.
[2019-05-19 09:12] LABS: Lactic Acid w/Reflex 11.1 mmol/L (0.4-2.0)
--- NOTE | 2019-05-19 09:13 | NUR ---
THIRD PAGE FOR DR Bakari JACKSON
--- NOTE | 2019-05-19 09:20 | NUR ---
RESPIRATORY/MD NOTIFIED DR Bakari JACKSON OF ABNORMAL ABG. ORDERS RECEIVED TO INCREASE RATE TO 20 AND GET AN ABG AN HOUR LATER. PAGED HAYDEE RT, TO NOTIFY.
[2019-05-19 09:32] LABS: Basophils % (manual) 0 (0.0-2.0); Blast Cells 0; Promyelocytes % 0; Reactive Lymphocytes 0
[2019-05-19] MEDS ORDERED: PHYTONADIONE (VIT K)10 MG/ML 1ML VIAL SUBCUT SCH (10:00)
[2019-05-19] MEDS: SODIUM CHLOR 0.9% PF (SALINE LOCK) 10ML VIAL/SYR IV SCH ×2 (10:00→22:00)
--- NOTE | 2019-05-19 10:20 | NUR ---
MD VISIT PT SEEN AND EXAMINED BY DR LEXIE PANG. UPDATED HIM ON THE PT'S CURRENT CONDITION, AM LABS, ABG, ORDERS FROM DR DELCID AND DR Bakari JACKSON.
[2019-05-19] MEDS: OMEPRAZOLE 20MG/10ML ORAL SUSP NG SCH ×2 (10:21→22:00)
--- NOTE | 2019-05-19 10:57 | NUR ---
NOTIFIED DR Sonny PANG OF LACTIC ACID 11.1 AND SAM SECOND ONE AT 1035. NO NEW ORDERS RECEIVED.
--- NOTE | 2019-05-19 11:29 | NUR ---
Nutrition Consult and Follow-up Notes Wt.: 115.0 kg today. Pt's room curtain's closed, RN at bedside during rounds earlier. Pt was intubated (05/17/19), sedated with Propofol @ 6.51 ml/hr providing 172 kcal from Fat, currently NPO, no order for alternate nutrition support yet at this time. Noted pt's for active GI, Neurology,Pulmonary and Wound consults. Est. Needs reassessed: [id number] kcal (14-18 kcal/kgBW), 58-73 gms pro (0.8-1.0 gms/kgIBW r/t elev ammonia cirrhosis). Will continue to monitor pertinent labs and reassess nutrient need prn. Labs: Cl 120 L, Cl 87 L, CO2 11 L, BUN 38 H, Cr 2.16 H, Ca 7.9 L, Lactic acid 11.1 H, Tot manoj 10.4 H, AST 97 H, ALT 65 H, Ammonia 222 H, Tpro 5.2 L, Alb 2.9 L Skin: Stevie scale 11, high risk, pt's left right elbows abrasion per clinical documentation specialist. GI: Pt had 200 ml stool output this morning per clinical documentation specialist. PES: Altered nutrition related lab values r/t acute/chronic medical condition aeb elev ammonia, BUN, mod hypoalb, hyperbil Increased nutrient needs r/t current/chronic medical condition aeb intubated, sedated, mod hypoalbuminemia, NPO Obesity r/t food intake more than body requirement aeb 158% IBW, BMI 37.4 kg/m2 and increased body adiposity Will continue to monitor NPO status, skin status, pertinent labs and weight trend. F/u in 2 to 3 days. Rec.: 1.) If still NPO in next 48 hrs, consider alternate nutrition support if medically appropriate. 2.) EN support preferred with formula choice of Jevity 1.2 Caio @ 55 ml/hr goal rate as tolerated while on current rate of Propofol. 3.) If Albumin level continues trending down with improved ammonia, renal labs, consider Prostat 1 pkt BID. 4.) Consider daily MVI with minerals and Asc acid 500 mgs BID. 5.) Refer pt to RD for further nutrition education and weight monitoring upon discharge. 6.) Continue current plan of care. Thank you for this consult
--- NOTE | 2019-05-19 12:35 | NUR ---
MD VISIT/FAMILY DR Bakari JACKSON HERE AT THE BEDSIDE AND UPDATED ON THE PT'S CONDITION INCLUDING REPEAT ABG S/P VENT CHANGES. HE SPOKE AT LENGTH WITH THE PT'S REGARDING PT'S CONDITION AND POOR PROGNOSIS. HE ALSO DISCUSSED CODE STATUS WITH PT'S , LONNIE.
[2019-05-19] MEDS: PROPOFOL 100 ML IV SCH (13:43)
[2019-05-19 13:57] LABS: Band Neutrophils % (manual) 23; Eosinophils % (manual) 5 (0-7); Lymphocytes % (manual) 6 (10.0-50.0); Metamyelocytes % 23; Monocytes % (manual) 5 (0-12); Myelocytes % 4
[2019-05-19 13:58] LABS: White Blood Cell 9.3 10^3/uL (4.4-10.8)
[2019-05-19] MEDS ORDERED: PHENYLEPHRINE INJ 80 MG in SODIUM CHL 0.9% 250 ML IV SCH (14:30)
--- NOTE | 2019-05-19 15:00 | NUR ---
Having trouble obtaining a pulse ox reading. Have tried pulse ox on both ears and both hands with a rare result only. MD hernandez
--- NOTE | 2019-05-19 17:22 | NUR ---
attempted to contact pt's , ethel. left message asking that he call back urgently.
--- NOTE | 2019-05-19 17:25 | NUR ---
SPOKE WITH PT'S , LONNIE, BY PHONE, AND LET HIM KNOW OF DETERIORATION IN PT'S CONDITION AND BP.
--- NOTE | 2019-05-19 17:27 | NUR ---
PAGED DR LEACH. STILL NO BP DESPITE MAXIMUM DOSE OF LEVOPHED, VASOPRESSIN, AND NEOSYNEPHRINE.
[2019-05-19] MEDS ORDERED: EPINEPHrine HCL 250 ML IV SCH (17:33)
--- NOTE | 2019-05-19 17:33 | NUR ---
PT STILL WITH NO BP. [address] LEACH. SPOKE WITH DR LEACH ORDERS FOR EPINEPHRINE DRIP.
[2019-05-19] MEDS ORDERED: EPINEPHrine HCL 250 ML IV ONE (17:36)
--- NOTE | 2019-05-19 17:45 | NUR ---
NO BP. STRONG DOPPLER PULSES. INCREASED EPINEPHRINE DRIP TO 5 MCG.
[2019-05-19] MEDS: ALBUMIN 25% 100 ML IV SCH ×2 (18:00→18:52)
--- NOTE | 2019-05-19 18:10 | NUR ---
SPOKE WITH DR LEACH AND MADE AWARE PT ON MAX DOSES OF NEOSYNEPHRINE, EPINEPHRINE, VASOPRESSIN AND LEVOPHED. STILL NO BP BUT STRONG DOPPLER FEMORAL PULSES. ORDER RECEIVED FOR ALBUMIN 50 GM IV NOW. [facility]AD[facility], [facility], CALLED AND SPOKE WITH PT'S , LONNIE, TO NOTIFY HIM THAT PT'S CONDITION CONTINUES TO DETERIORATE. LONNIE STATES HE IS ON HIS WAY AND SHOULD BE HERE IN ABOUT 25 MINUTES. Addendum: 05/19/19 at 1819 by Xiomy Berg RN ALSO NOTIFIED HIM OF 800 ML OUT OF NGT TO LIS, DARK RED, MOST OF THAT WITHIN THE LAST 30 MINUTES. STAT H/H DRAWN AND SENT TO LAB.
[2019-05-19] MEDS ORDERED: ALBUMIN 25% 200 ML IV ONE (18:16)
[2019-05-19 18:27] LABS: Hematocrit 17.1 % (36.0-46.0)
[2019-05-19 18:30] LABS: Hemoglobin 5.3 g/dL (12.2-16.2)
--- NOTE | 2019-05-19 18:31 | NUR ---
CRITICAL LAB RESULT H/H 5.3/17.[address] LEACH. ANOTHER 200 ML OUT OF NGT. STILL NO BP. STILL FEMORAL PULSE WITH DOPPLER.
--- NOTE | 2019-05-19 18:37 | NUR ---
CALLED AND NOTIFED DR LEACH OF H/H 5.3/17.1 AND THAT A TOTAL OF 1000ML OUT OF NGT . ORDERS RECEIVED FOR 2 UNITS OF PRBC AND I FFP TO BE GIVEN STAT.
--- NOTE | 2019-05-19 18:40 | NUR ---
Respiratory note: RECEIVED PT FROM EDITHWALANCE ON VENT 13. NO CHANGES MADE AT THIS TIME. VENT PLUGGED INTO RED OUTLET, ALARMS ON AND AUDIBLE. AMBU BAG AND MASK AT BEDSIDE. PT INTUBATED WITH 7.0 ETT SECURED WITH ENA AT 24CM, ETT NOT MOVED AT THIS TIME, LIP BREAKDOWN NOTED, RN AWARE. BS COARSE, SUCTIONED SCANT THIN CLEAR SECRETIONS, NO GAG REFLEX NOTED. EDEMA NOTED ON EXTREMITIES, SKIN COOL AND DRY TO TOUCH. RN AT BEDSIDE. PT ON CONT BEDSIDE MONITORING, UNABLE TO OBTAIN SPO2 AND BLOOD PRESSURE READING. WILL CONTINUE TO MONITOR.
--- NOTE | 2019-05-19 18:40 | NUR ---
SPOKE WITH DR EDWARDS BY PHONE AND NOTIFIED OF TOTAL OF 1 LITER DARK RED FLUID OUT OF NGT. ORDERS AN ADDITIONAL 2 UNITS OF FFP AND I PLATELETS.
--- NOTE | 2019-05-19 18:53 | NUR ---
HUNG SECOND BOTTLE OF ALBUMIN LOT # [id number] EXP AUG 30, 2021
--- NOTE | 2019-05-19 19:31 | NUR ---
REPORT REPORT GIVEN TO VANESSA RNMAGED. IN TO BEDSIDE TO CHECK PT.
--- NOTE | 2019-05-19 19:47 | NUR ---
UNABLE TO OBTAIN BP AT THIS TIME; PT. IS CURRENTLY ON EPINEPHRINE GTT, VASOPRESSIN GTT, LEVOPHED GTT, AND MANI GTT FOR BP SUPPORT; WILL CONT. TO MONITOR.
--- NOTE | 2019-05-19 20:27 | NUR ---
Respiratory note: UNABLE TO OBTAIN SPO2 AND BLOOD PRESSURE READING AT THIS TIME. WILL CONTINUE TO MONITOR.
--- NOTE | 2019-05-19 21:45 | NUR ---
PAGED HOSPITALIST REGARDING CRITICAL ABG RESULT. NEW ORDERS FOR 3 AMPS BICARB PUSH AND TO START ON 2 AMP BICARB GTT IN .9NS AT 100 MLS/HR
[2019-05-19] MEDS ORDERED: SODIUM BICARBONATE 8.4% INJ 50ML SYRINGE ONE ×2 (21:56→21:57)
[2019-05-19] MEDS ORDERED: SODIUM BICARBONATE 50ML VIAL 100 ML in SOD CHL 0.45% 1,000 ML IV SCH (22:00)
[2019-05-19] MEDS ORDERED: SODIUM BICARB 50ML SYR 100 ML in SODIUM CHLORIDE 0.9% 1,000 ML IV SCH (22:00)
--- NOTE | 2019-05-19 23:00 | NUR ---
HOSPITALIST CALLED FOR NEW ORDERS. PT'S HR DECREASING IN 60'S. MAXED OUT ON ALL CURRENT PRESSORS. ORDERS RECEIVED FOR 1X ATROPINE, ACLS PROTOCOL AND TO START ON DOPAMINE GTT.
[2019-05-19] MEDS: VASOPRESSIN 50 UNITS in D5W 5% 247.5 ML IV SCH (23:15)
[2019-05-19] MEDS ORDERED: DOPamine 1600MCG/ML D5W 250 ML IV ONE (23:18)
[2019-05-20] MEDS ORDERED: DOPamine 1600MCG/ML D5W 250 ML IV SCH
--- NOTE | 2019-05-20 | NUR ---
NGT OUTPUT CURRENTLY FOR SHIFT IS 2,750 MLS OF DARK RED BLOOD. CURRENTLY INFUSING BLOOD PRODUCTS. BLOOD ALSO SEEN SEEPING OUT OF PT'S NOSTRIL AND MOUTH.
--- NOTE | 2019-05-20 00:26 | NUR ---
STILL UNABLE TO OBTAIN BLOOD PRESSURE DESPITE MAX DOSAGES OF EPINEPHRINE GTT, VASOPRESSIN GTT, LEVOPHED GTT,AND MANI GTT. DOPAMINE GTT STARTED AT 5MCG/MIN
--- NOTE | 2019-05-20 00:45 | NUR ---
PT STARTED ACTIVELY SEIZING FOR 1 MINUTE. HOSPITALIST PAGED AND ORDER FOR ATIVAN IV. ATIVAN GIVEN.
--- NOTE | 2019-05-20 00:45 | NUR ---
POC BLOOD SUGAR LESS THAN 10 AND REPEATED BLOOD SUGAR LESS THAN 10. 1 AMP DEXTROSE GIVEN PER PROTOCOL.
[2019-05-20] MEDS ORDERED: LORazepam 2MG/ML-1ML VIAL ONE ×2 (00:46→03:46)
[2019-05-20] MEDS ORDERED: DEXTROSE 50% SYRINGE 50 ML IV ONE ×3 (00:56→06:13)
--- NOTE | 2019-05-20 01:30 | NUR ---
SPOKE WITH LORRAINE CLEMENTE ABOUT CRITICAL HGB <4. ORDERS FOR 2 PRBC STAT.
[2019-05-20] MEDS ORDERED: VASOPRESSIN 20 UNIT/ML ONE ×4 (01:47→06:09)
--- NOTE | 2019-05-20 02:00 | NUR ---
WATER SOFTENER SERVICER AT BEDSIDE TO PUT I/O IN. I/O TO LEFT UPPER THIGH.
[2019-05-20 02:01] LABS: BUN/Creatinine Ratio 13.8; Calcium 6.5 mg/dL (8.5-10.1); Magnesium 3.2 mg/dL (1.6-2.6)
--- NOTE | 2019-05-20 02:04 | NUR ---
FAMILY NOTIFIED LONNIE, OF PT'S CRITICAL CONDITION. STATES HE WANTS US TO DO EVERYTHING WE CAN AND HE WILL COME SOON HE CAN.
[2019-05-20 02:07] LABS: Potassium 7.2 mmol/L (3.5-5.1)
--- NOTE | 2019-05-20 02:16 | NUR ---
SPOKE WITH HOSPITALIST, CHYNA ASHLEY ABOUT CRITICAL POTASSIUM OF 7.2 AND CO2 OF 5. NEW ORDERS RECEIVED. 3 AMPS SODIUM BICARB. CALCIUM GLUCONATE, 1 AMP DEXTROSE, AND 10 UNITS INSULIN IV.
[2019-05-20] MEDS ORDERED: InsuLIN REG 1unit/0.01ml Soln (100units/ml) IV ONE (02:30)
[2019-05-20] MEDS ORDERED: SODIUM BICARBONATE 8.4 % INJ 50ML VIAL IV ONE (02:30)
[2019-05-20] MEDS ORDERED: CALCIUM GLUC 4.65meq/50ml D5AE 50 ML IV ONE (02:30)
[2019-05-20 02:38] LABS: Mean Corpuscular Hemoglobin 28.7 pg (28.0-32.0); Mean Corpuscular Hgb Conc. 28.6 g/dL (32.0-36.0); Mean Corpuscular Volume 100.4 fL (80.0-100.0); Platelet Count (auto) 61 10^3/uL (140-450); Red Blood Cells 1.19 10^6/uL (4.0-5.20); White Blood Cell 13.7 10^3/uL (4.4-10.8)
[2019-05-20 02:46] LABS: Hemoglobin 3.4 g/dL (12.2-16.2)
[2019-05-20 02:47] LABS: Basophils % (manual) 0 (0.0-2.0); Blast Cells 0; Myelocytes % 0; Promyelocytes % 0; Reactive Lymphocytes 0
--- NOTE | 2019-05-20 03:11 | NUR ---
UNABLE TO OBTAIN TEMPERATURE. PT TOO UNSTABLE TO PLACE RECTAL THERMOMETER. INITIATED WARMING MEASURES. PLACED WARMING BLANKET AND WARM BLANKETS.
[2019-05-20 03:18] LABS: Band Neutrophils % (manual) 55; Eosinophils % (manual) 2 (0-7); Lymphocytes % (manual) 16 (10.0-50.0); Metamyelocytes % 3; Monocytes % (manual) 13 (0-12)
[2019-05-20] MEDS: VASOPRESSIN 50 UNITS in D5W 5% 247.5 ML IV SCH (03:25)
--- NOTE | 2019-05-20 03:46 | NUR ---
PT. HAVING SEIZURE; ATIVAN 2MG IVP GIVEN.
[2019-05-20] MEDS ORDERED: LORazepam 2MG/ML-1ML VIAL IV PRN (04:00)
--- NOTE | 2019-05-20 04:39 | NUR ---
SPOKE EXTENSIVELY WITH ON CODE STATUS; PT HAS SIGNED DNR ORDER WITH TWO RN VERIFICATION. PT'S UNDERSTANDS THAT WE WILL CONTINUE EVERYTHING BEING DONE FOR PT CURRENTLY. Addendum: 05/20/19 at 0448 by MAGED GALEANA RN PT'S SIGNED DNR PAPER
[2019-05-20] MEDS: SODIUM CHL 0.9% IV SCH ×3 (06:00)
[2019-05-20] MEDS: PIPERACILLIN TAZOB IV SCH ×3 (06:00)
[2019-05-20] MEDS: LACTULOSE 20Gm/30ML SOLN PO SCH (06:00)
--- NOTE | 2019-05-20 06:40 | NUR ---
POC BLOOD SUGAR 22. 1 AMP DEXTROSE GIVEN. BLOOD SUGAR RECHECK 40.
--- NOTE | 2019-05-20 06:47 | NUR ---
SPARE PERSON AT BEDSIDE UNABLE TO DRAW BLOOD FROM PT FOR LABS PT IS VERY EDEMATOUS.
--- NOTE | 2019-05-20 06:56 | NUR ---
UNABLE TO TURN PT PT IS TOO UNSTABLE NOT TOLERATING ANY TURNS Addendum: 05/20/19 at 0657 by MAGED GALEANA RN Amended: Links added.
--- NOTE | 2019-05-20 07:19 | NUR ---
REPORT: REPORT RECEIVED FROM CAR REPAIRER APPRENTICE RN TO RESUME CARE OF PT.
--- NOTE | 2019-05-20 07:20 | NUR ---
END OF SHIFT NOTE PT REMAINED TO BE UNSTABLE ALL SHIFT. COULD NOT OBTAIN BLOOD PRESSURE OR PULSE OXIMETRY THROUGHOUT THE SHIFT. PT REMAINED MAXED ON DOSAGES OF LEVOPHED, VASOPRESSIN, NEOSYNEPHRINE, EPINEPHRINE, AND DOPAMINE GTT. INFUSED 1 UNIT OF PLTS, 1 UNIT OF FFP, AND 4 UNITS OF PRBCS. NGT OUTPUT FOR THIS SHIFT WAS 6,500 MLS OF DARK RED BLOOD. PT WAS TOO UNSTABLE THROUGHOUT SHIFT TO TURN. UNABLE TO ASSESS SKIN. MD AND FAMILY AWARE. PT IS FULL DNR NOW BUT TO CONTINUE CURRENT TREATMENT. PT'S CURRENT HR IS 80'S WITH PVC'S, PAC'S, AND RUNS OF V TACH WITH MULTIPLE RHYTHM CHANGES. FEMORAL PULSE PALPABLE BUT WEAK AND THREADY. REPORT GIVEN TO DAY SHIFT RN, TO ASSUME CARE.
--- NOTE | 2019-05-20 07:45 | NUR ---
UPDATE: RECEIVED REPORT FROM DIRECTOR IT PROJECT RN TO RESUME CARE OF PATIENT AND ASSESSMENT COMPLETE. PATIENT IS INTUBATED AT TIME, SIZE 7.0ETTUBE/23LIP LINE. NGT TO LEFT NARE THAT IS TO LCS WITH ANAND RED BLOOD DRAINING AT TIME-MD AWARE. PATIENT HAS NO COUGH/GAG REFLEX, PUPILS BILATERAL 5 AND FIXED, NO REFLEX AT TIME AND DOES NOT APPEAR TO BE RESPONDING TO ANY STIMULI AT TIME. MANCINI CATHETER IN PLACE DRAINING SCANT AMOUNT OF DARK BROWN URINE TO GRAVITY. RECTAL TUBE IN PLACE DRAINING BLACK/RED STOOL TO DRAINAGE. SCD'S ON BILATERAL LOWER EXTREMITIES. 3LUMEN PICC LINE RUNNING .9NS WITH 2 AMPS HCO3 AT 100ML/HR, FENTANYL GTT AT 25MCG/HR, NEOSYNEPHRINE GTT AT 150MCG/MIN, EPINEPHRINE GTT AT 10MCG/MIN, LEVOPHED GTT AT 30MCG/MIN, VASOPRESSIN AT 0.9UNITS/MIN, DOPAMINE GTT AT 20MCG/KG/MIN. INTRAOSSEOUS TO LEFT UPPER THIGH THAT IS FLUSHING WELL, BLOOD RETURN AND NO RESISTANCE NOTED. UNABLE TO OBTAIN TEMPERATURE AT TIME NOT READING AND PT TOO UNSTABLE TO TURN AT TIME TO INSERT RECTAL PROBE FOR TEMPERATURE MONITORING. ALL MONITORS HOOKED UP TO PT FOR CONTINUOUS MONITORING. SHARED POC WITH PT BUT UNABLE TO VERBALIZE UNDERSTANDING AT TIME. PATIENT HEART RATE HAS BEEN ALTERNATING BETWEEN SINUS RHYTHM 70'S WITH PAC'S, PVC'S, TO ATRIAL FIBRILLATION, TO 2DEGREE HEART BLOCK TO HAVING LONG PAUSES. HEART RATE FLUCTUATING BETWEEN 40-85. NO BLOOD PRESSURE THAT IS DETECTABLE. NOT ABLE TO DETECT PULSE OX AT TIME. CONTINUE CARE FOR SHIFT.
[2019-05-20 07:53] LABS: Red Blood Cells 0.96 10^6/uL (4.0-5.20)
[2019-05-20 07:55] LABS: Hematocrit 10.5 % (36.0-46.0); Mean Corpuscular Hgb Conc. 27.5 g/dL (32.0-36.0); Mean Corpuscular Volume 109.2 fL (80.0-100.0); Platelet Count (auto) 84 10^3/uL (140-450)
[2019-05-20 07:58] LABS: Hemoglobin 2.9 g/dL (12.2-16.2)
[2019-05-20 07:59] LABS: Basophils % (manual) 0 (0.0-2.0); Blast Cells 0; Eosinophils % (manual) 0 (0-7); Promyelocytes % 0; Reactive Lymphocytes 0
--- NOTE | 2019-05-20 08:00 | NUR ---
FAMILY: CALLED , LONNIE TO UPDATE THAT PATIENT HEART RATE STARTING TO DROP FROM 80'S TO 40-45. PER , PATIENT TO REMAIN A DNR STATUS AT TIME AND TO NOT PERFORM LIVE SAVING MEASURES IN CASE HEART STOPS. PLAN TO CARRY OUT WISHES AND CONTINUE WITH TREATMENT.
--- NOTE | 2019-05-20 08:05 | NUR ---
NO PULSE: AFTER PATIENT HEART RATE STARTING TO DECREASE, PATIENT NOW HAS NO HEART BEAT AND NO PULSE DETECTED. DOPPLER TO LEFT FEMORAL AND CAROTID PULSE CHECKED, BUT NO PULSE AT TIME. PATIENT IS A DNR AND CONFIRMED BY THIS AM TO NOT CONTINUE WITH LIFE SAVING MEASURES AT TIME.
[2019-05-20 08:09] LABS: Calcium 10.9 mg/dL (8.5-10.1)
--- NOTE | 2019-05-20 08:10 | NUR ---
HOUSE HEAVY EQUIPMENT MECHANIC: NOTIFIED HOUSE HEAVY EQUIPMENT MECHANIC THAT PATIENT LOST PULSE AT 0805. HOUSE HEAVY EQUIPMENT MECHANIC, MAY PARKS TO BE HERE SHORTLY TO PRONOUNCE PATIENT .
[2019-05-20 08:11] LABS: Bilirubin, Total 1.6 mg/dL (0.2-1.0); Total Protein 1.5 g/dL (6.4-8.2)
[2019-05-20] MEDS ORDERED: DEXTROSE (50%) 50ML SYRG IV ONE (08:11)
[2019-05-20] MEDS ORDERED: ATROPINE SULF 1 MG/10ml SYR IV ONE ×2 (08:11)
--- NOTE | 2019-05-20 08:12 | NUR ---
PRONOUNCEMENT OF CALLED TO PRONOUNCE. PT WITH HX OF END STAGE LIVER FAILURE, ON MULT VASOPRESSORS, MADE DNR LAST NIGHT. FOUND PT PULSELESS AND APNEIC. ASYSTOLE IN 2 LEADS; ABSENCE OF PULSE AND RESP UPON AUSCULTATION FOR ONE FULL MINUTE. ABSENCE OF ALL REFLEXES. TOD 0812.
--- NOTE | 2019-05-20 08:12 | NUR ---
PRONOUNCE: PATIENT PRONOUNCED AT BEDSIDE BY MAY LINARES RN AFTER SPEAKING TO DR. Jose PANG AND INFORMING MD THAT PATIENT HAS AND ASYSTOLE AT 0805. PER , OK FOR HOUSE BLIND LACER TO PRONOUNCE .
--- NOTE | 2019-05-20 08:15 | NUR ---
FAMILY: ATTEMPTED TO CALL , LONNIE X2 FOR EACH PHONE NUMBER PROVIDED, CELL PHONE AND PRIMARY PHONE. NO ANSWER BUT DID MENTION EARLIER ON THIS AM AT 0800 AFTER SPEAKING TO HIM THAT HE WOULD BE HERE SHORTLY.
[2019-05-20 08:40] LABS: Potassium 9.7 mmol/L (3.5-5.1)
[2019-05-20 08:41] LABS: Albumin 0.5 g/dL (3.4-5.0)
--- NOTE | 2019-05-20 08:43 | NUR ---
[facility]: CALLED [facility]. AFTER ALL INFORMATION GIVEN, REFERENCE NUMBER OF [id number]. PATIENT IS A POTENTIAL ORGAN DONER AT TIME AND THEY WILL CALL BACK IN APPROX. 1-2HRS TO CONFIRM IF PT IS A ORGAN DONER. OK TO STILL REMOVE TUBES AND LINES ONCE THE PATIENT IS CLEARED BY LEGAL SERVICE SPECIALIST.
[2019-05-20 08:49] LABS: BUN/Creatinine Ratio 11.8
--- NOTE | 2019-05-20 09:30 | NUR ---
[employer]: [employer] CALLED. UPDATED ON PT INFORMATION AND NOTIFIED OF . WAITING FOR CALL BACK.
--- NOTE | 2019-05-20 09:30 | NUR ---
: FAMILY IN AT BEDSIDE. AWARE THAT PT AT 0812 THIS AM. DID VISIT AT BEDSIDE, SIGNED RELEASE OF REMAINS AND ALL CONTACT INFORMATION OBTAINED. IS NOT SURE ON MORTUARY AT TIME. HOUSE COUNTERINTELLIGENCE/HUMINT SPECIALIST MADE AWARE AND PROVIDED HIM THE PHONE NUMBER FOR HOUSE COUNTERINTELLIGENCE/HUMINT SPECIALIST TO CALL WHEN HE CHOOSES A MORTUARY. ALL BELONGINGS GIVEN TO PATIENT .
--- NOTE | 2019-05-20 10:06 | NUR ---
SCIENCE PROFESSOR: SCIENCE PROFESSOR RELEASED PATIENT. SCIENCE PROFESSOR REFERENCE NUMBER [id number].
--- NOTE | 2019-05-20 11:00 | NUR ---
ALL TUBES ABD LINES REMOVED, PATIENT PLACED INTO BODY BAG. OFFICE PROFESSIONAL MADE AWARE. WILL CALL SECURITY TO HAVE BODY PUT IN [place].
--- NOTE | 2019-05-20 11:26 | NUR ---
BODY TAKEN BY SECURITY TO [facility].
--- NOTE | 2019-05-20 11:26 | NUR ---
NII FROM [facility] CALLED BACK AND WAS INFORMED THAT PATIENT WAS TRANSFERRED TO [facility]. NII STATED SHE WILL FOLLOW UP WITH SOLAR INSTALLATION TECHNICIAN.
[2019-05-20 13:53] LABS: Band Neutrophils % (manual) 30
[2019-05-20 13:54] LABS: Monocytes % (manual) 4 (0-12)
[2019-05-20 13:57] LABS: Lymphocytes % (manual) 14 (10.0-50.0); Metamyelocytes % 20; Myelocytes % 2
== END 2019-05-20 08:12 | disposition expired | DRG 279 ==
LOC: EDBD 20:57 → ER 21:00 → TELE 05-16 02:27 → DOU IN ICU 05-16 04:11 → ICU WEST 05-17 01:05
PROVIDERS: ADMIT Nurse Practitioner Family; ATTEND Internal Medicine
PROC: 30233N1 Transfusion of Nonautologous Red Blood Cells into Peripheral Vein, Percutaneous Approach (ICD-10-PCS; 2019-05-16)
PROC: 5A1945Z Respiratory Ventilation, 24-96 Consecutive Hours (ICD-10-PCS; principal; 2019-05-17)
PROC: 0BH17EZ Insertion of Endotracheal Airway into Trachea, Via Natural or Artificial Opening (ICD-10-PCS; 2019-05-17)
PROC: 30233K1 Transfusion of Nonautologous Frozen Plasma into Peripheral Vein, Percutaneous Approach (ICD-10-PCS; 2019-05-17)
PROC: 30233R1 Transfusion of Nonautologous Platelets into Peripheral Vein, Percutaneous Approach (ICD-10-PCS; 2019-05-18)
DX: K72.90 Hepatic failure, unspecified without coma (principal); J96.00 Acute respiratory failure, unspecified whether with hypoxia or hypercapnia; G93.41 Metabolic encephalopathy; E43 Unspecified severe protein-calorie malnutrition; D61.818 Other pancytopenia; E87.4 Mixed disorder of acid-base balance; K92.0 Hematemesis; I50.41 Acute combined systolic (congestive) and diastolic (congestive) heart failure; I85.11 Secondary esophageal varices with bleeding; K70.31 Alcoholic cirrhosis of liver with ascites; Z66 Do not resuscitate; K76.6 Portal hypertension; D68.9 Coagulation defect, unspecified; E87.1 Hypo-osmolality and hyponatremia; E87.5 Hyperkalemia; D50.9 Iron deficiency anemia, unspecified; E66.9 Obesity, unspecified; W18.30XA Fall on same level, unspecified, initial encounter; E87.6 Hypokalemia; G89.4 Chronic pain syndrome; K80.20 Calculus of gallbladder without cholecystitis without obstruction; N17.9 Acute kidney failure, unspecified; N39.0 Urinary tract infection, site not specified; K21.9 Gastro-esophageal reflux disease without esophagitis; Z68.39 Body mass index [BMI] 39.0-39.9, adult; Y93.89 Activity, other specified
CPT/HCPCS: 36415; 36430; 36569; 36600; 70450; 71045; 72125; 74177; 76700; 76705; 80048; 80053; 80307; 81001; 82140; 82570; 82805; 82962; 83540; 83550; 83605; 83735; 83880; 83935; 84100; 84156; 84295; 84300; 84484; 85007; 85014; 85018; 85025; 85027; 85610; 85730; 86038; 86160; 86704; 86706; 86708; 86803; 86850; 86900; 86901; 86920; 87040; 87070; 87077; 87081; 87086; 87088; 87186; 87205; 87340; 93005; 93306; 94002; 94003; 96361; 96365; 96375; C9113; G0378; J0171; J0330; J2543; J2704; J3430; J7060; P9047